=== PATIENT | male | born 1960 | race Caucasian/White ===

== ENCOUNTER → 2016-11-12 | Outpatient (CLI) | payer OTHER ==
[~2016-11-12] MED LIST: ABILIFY5 MG PO; ADVAIR 250/501 DISK IH; ASPIR 8181 M1 PO; ASPIR-LOW81 MG PO; BAYER W-CALCIU1 EACH PO; CARVEDILOL25 MG PO; CLONAZEPAM0.5 MG PO; COREG25 M1 PO; DEXILANT60 MG PO; DIOVAN160 MG PO; DULERA 200 MCG/13 GM IH; DUONEB 2.5-0.5 M3 ML AEROSOL; HYDROCODONE AP PO; LEVAQUIN500 MG PO; LEVOFLOXACIN750 MG PO; LIPITOR20 MG PO; LIPITOR40 MG PO; NASACORT10.8 ML BOTH NARES; NEURONTIN600 MG PO; NICOTINE PATCH1 EAC1 TD; NICOTINE PATCH1 EAC2 TD; PLAVIX75 MG PO; PREDNISONE10 MG PO; PREDNISONE20 MG PO; PREDNISONE50 MG PO; SPIRIVA RESPIMAT4 GM IH
== END | disposition home or self-care (01) ==
LOC: RES 08:00
DX: Z02.71 Encounter for disability determination (principal)
CPT/HCPCS: 94060; 94729; 94760